=== PATIENT | female | born 1995 | race Caucasian/White ===

== ENCOUNTER 2017-02-21 15:34 | Observation (INO) ==
--- NOTE | 2017-02-21 16:38 | Emergency Department Note ---
Disposition Clinical Impression: Abdominal pain Qualifiers: Abdominal location: right lower quadrant Qualified Code(s): R10.31 - Right lower quadrant pain Acute appendicitis Qualifiers: Acute appendicitis type: with localized peritonitis Qualified Code(s): K35.3 - Acute appendicitis with localized peritonitis Disposition: Admitted As Inpatient Condition: Good Abdominal Pain HPI - General Chief Complaint: ED Abdominal Pain Stated Complaint: ABD Pain Time Seen by Provider: 02/21/17 16:29 Source: patient Mode of arrival: ambulatory Limitations: no limitations Nursing Notes Reviewed: Yes Vital Signs Reviewed: Yes - History of Present Illness HPI Narrative: 21-year-old comes in with a 2 day history of right lower quadrant pain. Patient was seen here last night white count was 18.8 thousand. Urine was negative urine test was negative. A CT scan since it was early in course and her exam was equivocal elected to hold off and she returns with persistent pain. Saw her family doctor who sends her in for a CT of the abdomen but concern is appendicitis. She is 2 weeks out from her last period. Pt Subjective Complaint: abdominal pain Onset (ago): day(s) Consistency: constant Location: RLQ Pain Scale: 5 Quality: aching Radiation: none Migration to: no migration Improves with: nothing Worsens with: movement Associated symptoms: Reports: nausea Treatments prior to arrival: none - Related Data LMP (females 10-50): other (2 weeks ago) Home Medications Medication Instructions Recorded Confirmed Norethindrone-E.estradiol-Iron 1 tab PO DAILY 02/21/17 02/21/17 [Mibelas 24 Fe Chewable Tablet] Allergies Allergy/AdvReac Type Severity Reaction Status Date / Time No Known Allergies Allergy Verified 02/21/17 16:01 Constitutional: Denies: fever, chills, weakness, weight change Eyes: Denies: eye pain, eye discharge, vision change ENT ED: Denies: ear pain, throat pain, dental pain, hearing loss, epistaxis, congestion, dysphagia Cardiovascular: Denies: chest pain, palpitations, dyspnea on exertion, edema, syncope Respiratory: Denies: cough, dyspnea, wheezes, hemoptysis, stridor Gastrointestinal: Reports: abdominal pain. Denies: nausea, vomiting, diarrhea, constipation, hematemesis, melena, hematochezia Genitourinary: Denies: dysuria, frequency, hematuria, discharge Musculoskeletal: Denies: back pain, neck pain, arthralgia, myalgia Integumentary: Denies: rash, abrasion, lesions Neurological: Denies: headache, weakness, numbness, paresthesias, confusion, abnormal gait, vertigo Psychiatric: Denies: anxiety, depression, suicidal thoughts, homicidal thoughts , auditory hallucinations, visual hallucinations Endocrine: Denies: fatigue Hematological/Lymphatic: Denies: easy bleeding, easy bruising Allergic/Immunologic: Denies: facial swelling, urticaria Abdominal Pain PMH - Past Medical History Medical history: Reports: no medical history Female Surgical History: Reports: no surgical history INSURANCE CLAIMS ANALYST history: Reports: no INSURANCE CLAIMS ANALYST history Psychiatric history: Reports: no psych history - Social History Smoking status: Never smoker Alcohol use: Reports: occasionally Drug use: Reports: none Physical Exam - General Limitations: no limitations General appearance: alert, in no apparent distress - Head Head exam: atraumatic, normocephalic, normal inspection - Eye Eye exam: Present: normal appearance, PERRL, EOMI - ENT ENT exam: normal exam, normal oropharynx, mucous membranes moist - Neck Neck exam: Present: normal inspection - Chest Chest inspection: Present: normal inspection, symmetric chest wall rise - Respiratory Respiratory exam: Present: normal lung sounds bilaterally - Cardiovascular Cardiovascular exam: Present: regular rate, normal rhythm, normal heart sounds - Abdominal Exam Abdominal exam: Present: soft, tenderness. Absent: guarding, rebound Abdominal tenderness: Present: RLQ - Extremities Exam Extremities exam: Present: normal inspection, full ROM. Absent: tenderness, pedal edema - Expanded Lower Extremity Exam Neurovascular/Tendon exam: Absent: motor deficit, sensory deficit, tendon deficit Gait: observed and normal - Back Exam Back exam: Present: normal inspection, full ROM. Absent: tenderness - Neurological Exam Neurological exam: Present: alert, oriented X3 - Psychiatric Psychiatric exam: Present: normal affect, normal mood - Skin Skin exam: Present: warm, dry, intact, normal color Course Vital Signs Temperature 97.9 F 02/21/17 15:59 Pulse Rate 64 02/21/17 15:59 Respiratory Rate 16 02/21/17 15:59 Blood Pressure 114/75 02/21/17 15:59 O2 Sat by Pulse Oximetry 100 02/21/17 15:59 Temperature 98.2 F 02/22/17 05:40 Pulse Rate 76 02/22/17 05:40 Respiratory Rate 14 02/22/17 05:40 Blood Pressure 105/58 02/22/17 05:40 O2 Sat by Pulse Oximetry 98 02/22/17 04:14 Oxygen Delivery Oxygen Delivery Room Air Abdominal Pain - Lab Data Result diagrams: 02/22/17 06:06 02/22/17 06:06 Lab Results 02/21/17 02/21/17 02/21/17 Range/Units 16:57 16:57 16:57 WBC 12.8 H (4.3-11.1) K/mcL RBC 4.28 (3.82-4.97) M/mcL Hgb 12.2 D (11.5-15.4) g/dL Hct 36.9 (35.3-44.9) % MCV 86.2 (83.0-100.0) fL MCH 28.5 (28.0-33.3) pg MCHC 33.1 (31.6-35.5) g/dL RDW 12.5 (11.5-14.5) % Plt Count 140 (140-400) K/mcL MPV 11.8 (9.4-12.4) fL Immature Gran % 0.2 (0-4) % Seg Neutrophils % 67.5 % Lymphocytes % 24.3 % Monocytes % 5.9 % Eosinophils % 1.7 % Basophils % 0.4 % Neutrophils # 8.6 (1.6-8.9) K/mcL Lymphocytes # 3.1 (0.6-4.6) K/mcL Monocytes # 0.8 (0.0-1.3) K/mcL Eosinophils # 0.2 (0.0-0.6) K/mcL Basophils # 0.1 (0.0-0.2) K/mcL Immature Plt Fraction 8.3 H (1.1-6.1) % PT 11.9 (9.4-12.1) Seconds INR 1.1 Sodium 135 L (136-145) mEq/L Potassium 4.4 (3.5-4.5) mEq/L Chloride 106 (98-109) mEq/L Carbon Dioxide 24 (19-29) mEq/L BUN 9 (7-20) mg/dL Creatinine 0.89 (0.57-1.11) mg/dL Est GFR ( Amer) > 60 Est GFR (Non-Af Amer) > 60 BUN/Creatinine Ratio 10 (6-26) Glucose 74 (70-99) mg/dL Calculated Osmolality 277 L (280-300) Calcium 9.0 (8.6-10.8) mg/dL S.B.A.R. - S.B.A.R. Recommendation: Recommendation based on pending studies, treatments, or consults S.B.A.R. Report Given to: Dr. Mahi العراقيBWinnieAAlise Repor Time: 20:41
[2017-02-21 17:19] LABS: Basophils # 0.1 K/mcL (0.0-0.2); Basophils % 0.4 %; Eosinophils # 0.2 K/mcL (0.0-0.6); Eosinophils % 1.7 %; Hematocrit 36.9 % (35.3-44.9); Immature Granulocytes % 0.2 % (0-4); Immature Platelets 8.3 % (1.1-6.1); Lymphocytes # 3.1 K/mcL (0.6-4.6); Lymphocytes % 24.3 %; Mean Corpuscular HGB Conc 33.1 g/dL (31.6-35.5); Mean Corpuscular Hemoglobin 28.5 pg (28.0-33.3); Mean Corpuscular Volume 86.2 fL (83.0-100.0); Mean Platelet Volume 11.8 fL (9.4-12.4); Monocytes # 0.8 K/mcL (0.0-1.3); Monocytes % 5.9 %; Neutrophils # 8.6 K/mcL (1.6-8.9); Platelet Count 140 K/mcL (140-400); Red Blood Count 4.28 M/mcL (3.82-4.97); Red Cell Distribution Width 12.5 % (11.5-14.5); Segmented Neutrophils % 67.5 %
[2017-02-21 17:21] LABS: Hemoglobin 12.2 g/dL (11.5-15.4)
[2017-02-21 17:33] LABS: BUN/Creatinine Ratio 10 (6-26); Blood Urea Nitrogen 9 mg/dL (7-20); Carbon Dioxide 24 mEq/L (19-29); Chloride 106 mEq/L (98-109); Glucose 74 mg/dL (70-99); Osmolality,Calculated 277 (280-300); Potassium 4.4 mEq/L (3.5-4.5); Sodium 135 mEq/L (136-145); eGFR For African Americans > 60; eGFR For Non-African Americans > 60
[2017-02-21] MEDS ORDERED: Piperacillin/Tazobactam 4.5 GM in D5% in Water (Mini-Bag+) 100 ML IVPB ONE (22:13)
[2017-02-21] MEDS ORDERED: 0.9 % Sodium Chloride 1,000 ML IVC SCH (22:15)
[2017-02-21 22:30] LABS: INR 1.1; Prothrombin Time 11.9 Seconds (9.4-12.1)
--- NOTE | 2017-02-21 23:02 | General Surg History&Physical ---
Date of Encounter: 02/21/17 Time of Encounter: 23:00 Assessment and Plan (1) Acute appendicitis Current Visit: Yes Status: Acute The assessment and plan as outlined above was discussed with the patient and/or family members who expressed understanding and agreement. All questions were answered. I explained to the patient and family that she does have evidence of acute appendicitis. I think it will be appropriate to proceed with a laparoscopic appendectomy. Risks and benefits have been discussed with the patient and family and they agree to the above plan. Qualifiers: Acute appendicitis type: with localized peritonitis Qualified Code(s): K35.3 - Acute appendicitis with localized peritonitis History of Present Illness Chief complaint: Right lower abdominal pain HPI: Ms. Lancaster is a 21 year old female with no significant past medical history presents to [facility] after having had right lower quadrant abdominal pain since 4:00 yesterday morning. She states the pain was continuous and ache located in the right lower quadrant and she initially presented to the emergency room where CT scan without contrast did not show any evidence of an abnormality. Her pain persisted and she did have an episode of nausea yesterday without vomiting. Because of her persistent pain she presented to the [facility] emergency room today and had a CAT scan with oral contrast demonstrated no evidence of acute appendicitis. Of note , she does have right lower quadrant pain with coughing Past Med Surg Social Fam HX - Past Medical History Medical history: no medical history Psychiatric history: no psych history - Social History Smoking Status: Never smoker Smokeless Tobacco Status: No Alcohol use: occasionally Drug use: none Medications and Allergies Norethindrone-E.estradiol-Iron [Mibelas 24 Fe Chewable Tablet] 1 tab PO DAILY [History] 3 Allergy/AdvReac Type Severity Reaction Status Date / Time No Known Allergies Allergy Verified 02/21/17 16:01 Review of Systems All systems PM: reviewed and no additional remarkable complaints except as stated All systems PM: A 10-system review of systems was performed and is negative for pertinent findings except as documented above in the HPI. General Surgery Exam Initial Vital Signs Temp Pulse Resp BP Pulse Ox 97.9 F 64 16 114/75 100 02/21/17 15:59 02/21/17 15:59 02/21/17 15:59 02/21/17 15:59 02/21/17 15:59 - Eyes PERRL, normal ocular movement - Respiratory normal expansion, normal respiratory effort, clear to auscultation - Cardiovascular Cardiovascular exam: Present: RRR, no murmurs/rubs/gallops - Abdomen Abdomen general surgery: Present: bowel sounds present, soft, tender (right lower abdominal pain) - Neurologic Present: CN 2-12 grossly intact - Musculoskeletal Present: other (no clubbing, cyanosis, or edema) Results - Labs 02/21/17 16:57 02/21/17 16:57 Abnormal lab results WBC 12.8 K/mcL (4.3-11.1) H 02/21/17 16:57 Immature Plt Fraction 8.3 % (1.1-6.1) H 02/21/17 16:57 Sodium 135 mEq/L (136-145) L 02/21/17 16:57 Calculated Osmolality 277 (280-300) L 02/21/17 16:57 Diabetes panel 02/21/17 Range/Units 16:57 Sodium 135 L (136-145) mEq/L Potassium 4.4 (3.5-4.5) mEq/L Chloride 106 (98-109) mEq/L Carbon Dioxide 24 (19-29) mEq/L BUN 9 (7-20) mg/dL Creatinine 0.89 (0.57-1.11) mg/dL Glucose 74 (70-99) mg/dL Calcium 9.0 (8.6-10.8) mg/dL Calcium panel 02/21/17 Range/Units 16:57 Calcium 9.0 (8.6-10.8) mg/dL Pituitary panel 02/21/17 Range/Units 16:57 Sodium 135 L (136-145) mEq/L Potassium 4.4 (3.5-4.5) mEq/L Chloride 106 (98-109) mEq/L Carbon Dioxide 24 (19-29) mEq/L BUN 9 (7-20) mg/dL Creatinine 0.89 (0.57-1.11) mg/dL Glucose 74 (70-99) mg/dL Calcium 9.0 (8.6-10.8) mg/dL Adrenal panel 02/21/17 Range/Units 16:57 Sodium 135 L (136-145) mEq/L Potassium 4.4 (3.5-4.5) mEq/L Chloride 106 (98-109) mEq/L Carbon Dioxide 24 (19-29) mEq/L BUN 9 (7-20) mg/dL Creatinine 0.89 (0.57-1.11) mg/dL Glucose 74 (70-99) mg/dL Calcium 9.0 (8.6-10.8) mg/dL All other labs normal. - Imaging CT scan - abdomen: report reviewed, image reviewed (Evidence of a thickened enlarged appendix without contrast consistent with acute appendicitis)
--- NOTE | 2017-02-21 23:16 | Anesthesia Evaluation PreOp ---
Date of Encounter: 02/21/17 Time of Encounter: 23:14 - Past History Planned Operation: Lap. Appy Cardiac History: Denies any Significant Hx Pulmonary History: Denies Any Significant HX HAULAGE ENGINE OPERATOR History: Denies Any Significant HX Other Medical History: Denies Any Significant HX Anesthesia History: No Prior Anesthetic Complications, Past Anesthesia (None) : No Test: Negative (02/20/2017) Alcohol Use: occasionally Drug use: none Medications and Allergies Norethindrone-E.estradiol-Iron [Mibelas 24 Fe Chewable Tablet] 1 tab PO DAILY [History] 3 Allergy/AdvReac Type Severity Reaction Status Date / Time No Known Allergies Allergy Verified 02/21/17 16:01 - Meds/Allergy Pre-op Review Medications Reviewed: Yes Allergies Reviewed: Yes Beta Blockers on Current Med List: No Anesthesia Results - Labs 02/21/17 16:57 02/21/17 16:57 Anesthesia Exam O2 Sat Height 1.65 m Weight 70.307 kg O2 Sat by Pulse Oximetry 99 O2 Sat by Pulse Oximetry 100 O2 Sat by Pulse Oximetry 100 O2 Sat by Pulse Oximetry 100 O2 Sat by Pulse Oximetry 100 O2 Sat by Pulse Oximetry 100 O2 Sat by Pulse Oximetry 100 Vital Signs Temp Pulse Resp BP Pulse Ox 97.9 F 64 16 114/75 100 02/21/17 15:59 02/21/17 15:59 02/21/17 15:59 02/21/17 15:59 02/21/17 15:59 Height: 5'5'' Weight: 155# NPO (# of Hours): > 8 hrs Pain Scale: 0 Pain Scale Used: Numeric (1 - 10) - HEENT Pupil (Motor): Pupils equal, EOMI Mallampati: I Teeth: Normal Oral Opening: Greater than 3 - HAULAGE ENGINE OPERATOR LOC: Oriented HAULAGE ENGINE OPERATOR Motor: Normal RUE, Normal LUE, Normal RLE, Normal LLE, Normal Face HAULAGE ENGINE OPERATOR Sensory: Normal: RUE, LUE, RLE, LLE, Face - Cardiac Rhythm: Regular Murmur: None JVD: No Carotid Bruit: No - Pulmonary Breath Sounds: bilateral Clear Respiratory Effort: Symmetrical Anesthesia Assess/Plan ASA Score: 1 Modified [place] Scale for Level of Consciousness: Cooperative, oriented, and tranquil Anesthetic Plan: General Autologous Blood: Yes Monitoring Plan: Standard Monitors Recovery Plan: PACU
[2017-02-21] MEDS ORDERED: *HR* Labetalol 20 MG/4 ML SYRINGE IVP PRN (23:17)
[2017-02-21] MEDS ORDERED: Ondansetron 4 MG/2 ML VIAL IVP ONE (23:17)
[2017-02-21] MEDS ORDERED: Albuterol 2.5 MG/3 ML NEBULIZER IH ONE (23:17)
[2017-02-21] MEDS ORDERED: *HR* Promethazine 25 MG/ML VIAL IVP PRN (23:17)
[2017-02-21] MEDS ORDERED: *HR* Midazolam HCl 2 MG/2 ML VIAL ONE (23:41)
[2017-02-21] MEDS ORDERED: *HR* FentaNYL (PF) 100 MCG/2 ML VIAL ONE (23:41)
[2017-02-21] MEDS ORDERED: *HR* Propofol 200 MG/20 ML VIAL IVP ONE (23:41)
[2017-02-21] MEDS ORDERED: *HR* Succinylcholine 200 MG/10 ML VIAL IVP ONE (23:43)
[2017-02-21] MEDS ORDERED: Lidocaine -MPF 2% 2 ML VIAL ONE (23:43)
[2017-02-21] MEDS ORDERED: *HR* Rocuronium Bromide 50 MG/5 ML VIAL ONE (23:43)
[2017-02-21] MEDS ORDERED: Ondansetron 4 MG/2 ML VIAL ONE (23:43)
[2017-02-21] MEDS ORDERED: Dexamethasone 4 MG/ML VIAL ONE (23:43)
--- NOTE | 2017-02-21 23:46 | Emergency Department Note ---
START Narrative - START START: I received this patient in signout. She does appear to have acute appendicitis. Unfortunately she had her IV infiltrated during her contrast bolus and CAT scan. She did receive the antidote immediately. Hyaluronic days was infiltrated into the injection site. The arm was elevated. She was given strict wound instructions. Zosyn was initiated. Surgery was notified and the patient was taken directly to the operating room via Dr. Maria and general surgery. The patient was stable at the time of transfer to the OR.
[2017-02-22] MEDS ORDERED: *HR* FentaNYL (PF) 100 MCG/2 ML VIAL ONE (00:21)
--- NOTE | 2017-02-22 00:40 | Operative Note ---
Date of procedure: 02/22/17 Pre-op diagnosis: Acute appendicitis Post-op diagnosis: same Procedure: Laparoscopic appendectomy Anesthesia: MARIELLA Surgeon: Cornelius Maria Estimated blood loss (cc): 5 Specimen: appendix Condition: stable Disposition: PACU Procedure in Detail: Date of surgery: 02/22/17 After properly identifying the patient, the patient was brought to the operating room and placed in the supine position. After proper IV sedation was achieved followed by general endotracheal intubation, the patient's abdomen was prepped and draped in normal sterile fashion. A timeout was performed noting the patient's name and type of procedure to be performed. An infra-umbilical incision with an 11 blade scalpel was made down to the level of the rectus fascia. Once the rectus fascia was incised the abdomen was entered and a 12 mm port was placed to the incision. The abdomen was insufflated with carbon dioxide and a laparoscopic camera was placed to the port which showed no injury to the intra-abdominal organs upon entry. A suprapubic 5 mm port and a left lower quadrant 5 mm port was then placed under direct camera visualization. The right lower quadrant was examined and the appendix appeared to be enlarged and inflammed, consistent with acute appendicitis. The appendix was grasped with a non traumatic grasper and the base of the appendix was dissected away from the mesentery with the laparoscopic [place] dissector. The base of the appendix and the mesentery was then transected with a laparoscopic RANJAN stapler. The appendix was removed from the abdomen via an Endobag. Reinspection of the staple line demonstrated maintenance of hemostasis in the right lower quadrant and pelvis were irrigated with normal saline solution until the effluent was clear. The right lower quadrant was again reinspected for hemostasis and visualization of the staple line showed no evidence of bleeding. The abdomen was desufflated and all ports were then removed from the abdomen. The rectus fascia for the infra-umbilical incision was reapproximated with a [id number] 0 Vicryl suture. The subcutaneous tissue was reapproximated with interrupted 3-0 Vicryl sutures and the epidermal and dermal layers for the remaining incisions were closed with 4-0 Monocryl sutures. Needle, sponge, and instrument counts were correct 2 and the incisions were covered with Steri- Strips and Band-Aids. The patient was aroused from IV sedation, extubated in the operating room without complication, and transported to the recovery room in stable condition.
[2017-02-22] MEDS ORDERED: Neostigmine Methylsulfate 3 MG/3 ML SYRINGE ONE (00:47)
[2017-02-22] MEDS: *HR* HYDROmorphone (PF) 1 MG/ML SYRINGE IVP PRN ×2 (00:57→01:11)
--- NOTE | 2017-02-22 01:20 | Anesthesia Evaluation Post Op ---
Date of Encounter: 02/22/17 Time of Encounter: 01:19 - Vital Signs Vital Signs: Vital Signs/O2 Sat, Most Current Temp Pulse Resp BP Pulse Ox 98.1 F 52 11 115/73 100 02/22/17 00:51 02/22/17 01:11 02/22/17 01:11 02/22/17 01:11 02/22/17 01:11 - Lungs Lungs: Clear Ascult./Percussion - Airway Airway: Non-obstructed - Cardiovascular Regular Rate - Mental Status Mental Status: Alert & Oriented, Answers Appropriately - Pain Pain Scale: 0 Pain Scale used: Numeric (1 - 10) - Nausea Vomiting Nausea Vomiting: Not Present - Hydration Hydration: Ice chips, Has not voided - Discharge PostOp Status: Transfer Patient to floor
[2017-02-22] MEDS ORDERED: 0.9 % Sodium Chloride 1,000 ML IVC SCH (01:37)
[2017-02-22] MEDS ORDERED: Ondansetron 4 MG/2 ML VIAL IVP PRN (01:37)
[2017-02-22] MEDS ORDERED: *HR* OxyCODONE/APAP 10/325 TABLET PO PRN (01:37)
[2017-02-22] MEDS ORDERED: *HR* HYDROmorphone (PF) 1 MG/ML SYRINGE IVP PRN (01:37)
[2017-02-22] MEDS: Ketorolac 30 MG/ML VIAL IM SCH ×2 (05:47→11:49)
[2017-02-22 06:15] LABS: Basophils % 0.1 %; Hematocrit 35.2 % (35.3-44.9); Hemoglobin 11.9 g/dL (11.5-15.4); Immature Granulocytes % 0.3 % (0-4); Lymphocytes # 1.1 K/mcL (0.6-4.6); Lymphocytes % 9.1 %; Mean Corpuscular HGB Conc 33.8 g/dL (31.6-35.5); Mean Corpuscular Hemoglobin 28.3 pg (28.0-33.3); Mean Corpuscular Volume 83.6 fL (83.0-100.0); Mean Platelet Volume 10.9 fL (9.4-12.4); Monocytes # 0.1 K/mcL (0.0-1.3); Monocytes % 0.8 %; Neutrophils # 10.7 K/mcL (1.6-8.9); Platelet Count 166 K/mcL (140-400); Red Blood Count 4.21 M/mcL (3.82-4.97); Red Cell Distribution Width 12.1 % (11.5-14.5); Segmented Neutrophils % 89.7 %
[2017-02-22 06:28] LABS: BUN/Creatinine Ratio 10 (6-26); Blood Urea Nitrogen 9 mg/dL (7-20); Calcium 8.7 mg/dL (8.6-10.8); Carbon Dioxide 22 mEq/L (19-29); Chloride 107 mEq/L (98-109); Glucose 139 mg/dL (70-99); Osmolality,Calculated 279 (280-300); Potassium 4.1 mEq/L (3.5-4.5); Sodium 134 mEq/L (136-145); eGFR For African Americans > 60; eGFR For Non-African Americans > 60
[2017-02-22] MEDS ORDERED: Pantoprazole 40 MG VIAL IVP SCH (06:30)
[2017-02-22] MEDS ORDERED: Piperacillin/Tazobactam 3.375 GM in D5% in Water (Mini-Bag+) 100 ML IVPB SCH (08:00)
[2017-02-22 11:25] VITALS: BP 106/59
--- NOTE | 2017-02-22 12:09 | Discharge Summary ---
Date of Encounter: 02/22/17 Time of Encounter: 12:04 - Discharge Diagnosis (1) Acute appendicitis Priority: Primary Status: Resolved Qualifiers: Acute appendicitis type: with localized peritonitis Qualified Code(s): K35.3 - Acute appendicitis with localized peritonitis - Discharge Medications Prescriptions: Ondansetron ODT [Zofran ODT] 4 mg PO Q4HR PRN #30 tab.rapdis PRN Reason: Nausea Amoxicillin/Clavulanate [Augmentin] 875 mg PO BIDWM #10 tablet Docusate Sodium [Colace] 100 mg PO BID #60 capsule Ibuprofen 800 mg PO Q8H PRN #60 tablet PRN Reason: Pain rated 1-6 Home Medications: Norethindrone-E.estradiol-Iron [Mibelas 24 Fe Chewable Tablet] 1 tab PO DAILY [History] Amoxicillin/Clavulanate [Augmentin] 875 mg PO BIDWM #10 tablet 02/22/17 [Rx] Docusate Sodium [Colace] 100 mg PO BID #60 capsule 02/22/17 [Rx] Ibuprofen 800 mg PO Q8H PRN #60 tablet 02/22/17 [Rx] Ondansetron ODT [Zofran ODT] 4 mg PO Q4HR PRN #30 tab.rapdis 02/22/17 [Rx] Allergies/Adverse Reactions: 3 Allergy/AdvReac Type Severity Reaction Status Date / Time No Known Allergies Allergy Verified 02/21/17 16:01 General Surgery Exam Initial Vital Signs Temp Pulse Resp BP Pulse Ox 97.9 F 64 16 114/75 100 02/21/17 15:59 02/21/17 15:59 02/21/17 15:59 02/21/17 15:59 02/21/17 15:59 - General physical appearance well developed, well nourished, no distress - Eyes normal ocular movement - ENT normal mucosa, atraumatic, normocephalic - Neck no masses, no bruits, trachea midline, no lymphadectomy, no venous distension - Respiratory normal expansion, normal respiratory effort, clear to percussion, clear to auscultation - Cardiovascular Cardiovascular exam: Present: RRR, 15, 16 - Abdomen Abdomen general surgery: Present: bowel sounds present, soft, tender (Expected postoperative) Hernia: Present: none - Incision Incision: Present: clean and dry, intact - Integumentary Integumentary general surgery: Present: warm and dry, no abnormal pigmentation - Neurologic Present: CN 2-12 grossly intact, normal coordination, normal sensation - Musculoskeletal Present: normal gait, normal posture - Psychiatric Psychiatric general surgery: Present: appropriate, oriented to person, oriented to place, oriented to time, speech is normal, memory intact Date of admission: 02/21/17 23:15 Primary care physician: Isaura Rodriguez Discharging clinician: Cornelius mckeon) Anticipated date of discharge: 02/22/17 - Patient Status Disposition: Home, Self-Care Condition: Good Functional capacity at discharge: independent ambulation Overall status at discharge: patient is progressing back to baseline - Discharge Instructions Instructions: Laparoscopic Appendectomy (DC) Follow Up With: Isaura Lobato MD [Primary Care Provider] - Josie Mckeon CNP [Advanced Practice Nurse] - 03/07/17 1:30 pm Additional Instructions: 1. No pushing, pulling, lifting greater than 15 pounds for 2 weeks. 2. You may shower beginning tomorrow, but no tub bath, soaking, or swimming for two weeks. 3. You may begin driving when you are off narcotics and are safe to react in a car. 4. Take your antibiotics as directed if prescribed. Do not stop them prior to the end of the prescription. 5. Take your pain medication as prescribed. Do not take more than as prescribed. Do not share your pain medication with any other people. 6. Take stool softener is well on narcotics. You may hold these for loose stool. 7. Report any fevers greater than 100.5, increase abdominal discomfort, or drainage from your incision sites. 8. Follow-up in the office as directed. - Diet and Activity Activity: increase activity as tolerated Diet: advance to your usual diet - Hospital Course Hospital course: Ms. Lancaster is a 21 year old female who presented on 02/21/2017 for c/o right lower quadrant abdominal pain since 4:00 02/20/2017 morning. She stated the pain was continuous and ache located in the right lower quadrant and she initially presented to the emergency room where CT scan without contrast did not show any evidence of an abnormality. Her pain persisted and she did have an episode of nausea on 02/21 without vomiting. Because of her persistent pain she had a CAT scan with oral contrast demonstrated no evidence of acute appendicitis. Of note, she did have right lower quadrant pain with coughing. She did have mild leukocytosis with a white blood cell count of 12.8. She was diagnosed with acute appendicitis and taken to the operating room where Dr. Maria performed an uncomplicated laparoscopic appendectomy. Her hospital course has been unremarkable. She is ambulating and voiding without difficulty. She has tolerating a diet without nausea or vomiting. She states her discomfort is controlled with the current regimen. She is a 5 bridle and her vital signs are stable. We will begin discharge planning with a follow-up in the office in 2 weeks. - Time Spent with Patient Total time spent providing and/or coordinating discharge services: Less than 30 minutes Labs on day of discharge: Labs from last 24 hours 02/22/17 02/22/17 06:06 06:06 WBC 11.9 H RBC 4.21 Hgb 11.9 Hct 35.2 L MCV 83.6 MCH 28.3 MCHC 33.8 RDW 12.1 Plt Count 166 MPV 10.9 Immature Gran % 0.3 Seg Neutrophils % 89.7 Lymphocytes % 9.1 Monocytes % 0.8 Eosinophils % 0.0 Basophils % 0.1 Neutrophils # 10.7 H Lymphocytes # 1.1 Monocytes # 0.1 Eosinophils # 0.0 Basophils # 0.0 Sodium 134 L Potassium 4.1 Chloride 107 Carbon Dioxide 22 BUN 9 Creatinine 0.86 Est GFR ( Amer) > 60 Est GFR (Non-Af Amer) > 60 BUN/Creatinine Ratio 10 Glucose 139 H Calculated Osmolality 279 L Calcium 8.7
== END 2017-02-22 13:50 | disposition home or self-care (01) ==
LOC: 3ANU 15:34 → EMEROO 15:34 → 3ANU 23:22
PROVIDERS: ADMIT Surgery; ATTEND Surgery